=== PATIENT | female | born 1995 | race Caucasian/White ===

== ENCOUNTER 2016-10-28 13:25 | Emergency (ER) | payer MEDICAID ==
[~2016-10-28] VITALS: Wt 79.0 kg
[~2016-10-28 13:25] MED LIST: PREN1TAB62 PO
--- NOTE | 2016-10-28 13:50 | ERD ---
ER Documentation Chief Complaint Date/Time DATE: 10/28/16 TIME: 13:46 Chief Complaint VAG BLEED 5 WEEKS PREG HPI This is a 21-year-old female presents the emergency department today complaining of frequent urination and vaginal bleeding that started this morning. States she is approximate 5 weeks . States she has some crampy lower abdominal pain. States she has not taken any Tylenol but took her vitamins. [facility] has an appointment with [facility] on November 22. States she went there previously and had an ultrasound but they were not able to visualize the fetus. Denies any fevers or chills, nausea vomiting diarrhea. ROS All systems reviewed and are negative except as per history of present illness. Medications Home Meds Active Scripts Cephalexin* (Keflex*) 500 Mg Capsule, 500 MG PO QID for 7 Days, CAP Prov:SUZY MENESES PA-C 10/28/16 Acetaminophen* (Tylophen*) 500 Mg Capsule, 1 CAP PO Q6H Y for PAIN AND OR ELEVATED TEMP, #30 CAP Prov:SUZY MENESES PA-C 10/28/16 Reported Medications Vit-Iron Fumarate-FA ( Vitamin Tablet) 1 Each Tablet, 1 TAB PO DAILY, TAB 02/02/14 Allergies Allergies: Coded Allergies: No Known Allergy (Unverified , 10/28/16) PMhx/Soc Medical and Surgical Hx: pt denies Medical Hx, pt denies Surgical Hx Hx Alcohol Use: No Hx Substance Use: No Hx Tobacco Use: No Smoking Status: Never smoker Physical Exam Vitals Vital Signs Date Time Temp Pulse Resp B/P Pulse Ox O2 Delivery O2 Flow Rate FiO2 10/28/16 13:32 98.1 85 18 126/73 99 Physical Exam Const: pleasant, NAD Head: Atraumatic Eyes: Normal Conjunctiva ENT: Normal External Ears, Nose and Mouth. Neck: Full range of motion..~ No meningismus. Resp: Clear to auscultation bilaterally Cardio: Regular rate and rhythm, no murmurs Abd: Soft, Mild diffuse lower abdominal pain. non distended. Normal bowel sounds. No tenderness McBurney's. Skin: No petechiae or rashes Back: No midline or flank tenderness Ext: No cyanosis, or edema Neur: Awake and alert Psych: Normal Mood and Affect Result Diagram: 10/28/16 1420 Results 24 hrs Laboratory Tests Test 10/28/16 13:49 10/28/16 14:20 Urine Color STRAW Urine Clarity CLEAR Urine pH 5.0 Urine Specific [place] 1.008 Urine Ketones NEGATIVEmg/dL Urine Nitrite NEGATIVEmg/dL Urine Bilirubin NEGATIVEmg/dL Urine Urobilinogen NEGATIVEmg/dL Urine Leukocyte Esterase 2+Madelyn/ul Urine Microscopic RBC 3/HPF Urine Microscopic WBC 7/HPF Urine Squamous Epithelial Cells FEW/HPF Urine Bacteria FEW/HPF Urine Hemoglobin 3+mg/dL Urine Glucose NEGATIVEmg/dL Urine Total Protein NEGATIVEmg/dl White Blood Count 10.810^3/ul Red Blood Count 4.7910^6/ul Hemoglobin 14.1g/dl Hematocrit 41.3% Mean Corpuscular Volume 86.2fl Mean Corpuscular Hemoglobin 29.4pg Mean Corpuscular Hemoglobin Concent 34.1g/dl Red Cell Distribution Width 13.0% Platelet Count 81039^3/UL Mean Platelet Volume 10.8fl Neutrophils % 63.5% Lymphocytes % 25.5% Monocytes % 7.6% Eosinophils % 2.3% Basophils % 0.5% Nucleated Red Blood Cells % 0.0/100WBC Neutrophils # 6.910^3/ul Lymphocytes # 2.810^3/ul Monocytes # 0.810^3/ul Eosinophils # 0.310^3/ul Basophils # 0.110^3/ul Nucleated Red Blood Cells # 0.010^3/ul Beta HCG, Quantitative 1557.6mIU/ml DIAGNOSTIC IMAGING REPORT Patient: LUPE ARREDONDO : 1995 Age: 21 Sex: F MR #: [id number] DOS: 10/28/16 1342 Ordering MD: SUZY MENESES PA-C Location: [facility] Room/Bed: PROCEDURE: US OB. CLINICAL INDICATION: Vaginal bleeding. TECHNIQUE: Transabdominal and transvaginal views of the pelvis are available for review. COMPARISON: No prior studies are available for comparison. FINDINGS: Uterus is identified in is anteflexed. The uterus measures 8.4 cm sagittal by 4.6 cm AP by 5.5 cm transverse on endovaginal imaging. A gestational sac measuring 0.7 x 0.4 x 0.6 cm in size is identified containing a yolk sac. Mean sac diameter: 0.58 cm equals 5 weeks 1 day. Presentation: Mobile. [place]-rump length: Not visible. heart rate: Not detected. Amniotic fluid volume: Normal. Ultrasound estimated gestational age: Out of range. A 1.1 cm corpus luteal cyst of is identified in the right ovary. The right ovary measures 2.7 x 1.7 x 2.3 cm. The left ovary measures 2.7 x 2.2 x 1.9 cm. There is normal blood flow and Doppler imaging to both ovaries. No pathologic ovarian or adnexal mass lesion is seen. There is no free fluid. IMPRESSION: 1. A gestational sac is identified. Mean sac diameter calculates out to 5 weeks 1 day. Recommend follow-up ultrasound imaging to confirm viability in 1-2 weeks. 2. No free fluid or abnormal adnexal mass is identified. 3. 1.1 cm corpus luteal cyst in the right ovary. RPTAT:AAJJ Physician Shira Date Time Electronically viewed and signed by Chilango Posadas Physician on 10/28/2016 14:28 JM/ CC: SUZY MENESES PA-C Procedures/MDM This is a A1 21-year-old female who presents to the emergency department today complaining of vaginal bleeding. Patient states she is approximately 5 weeks. Given this I did obtain a complete OB workup. Laboratory work shows no elevated white blood cell count. She is not anemic. Platelets are within normal limits. UA Shows 2+ leukocyte esterase. Beta quant hCG 1557.6 Rh status O+ Ultrasound shows a gestational sac identified containing a yolk sac. Sac diameter calculus up to 5 weeks and 1 day. Recommend follow-up ultrasound imaging can to confirm viability in 1-2 weeks. There is no free fluid or abnormal adnexal mass identified. There is a 1.1 cm corpus luteal cyst in the right ovary. Patient declined Tylenol here in the emergency department. She will be given a prescription for home. Patient symptoms at this time is consistent with vaginal bleeding in early and urinary tract infection. Other differentials to consider early normal versus early failed . I did explain to the patient that she may continue to have some vaginal bleeding. She did report that she does went to the bathroom and did not have any bleeding at that time. Patient is afebrile and otherwise well-appearing. I have low suspicion for ectopic , tubo ovarian abscess, ovarian torsion. Low suspicion for acute surgical abdomen. I have explained the results to the patient. I have explained to the patient that they need to follow-up in 48 hours for a repeat beta quant and repeat ultrasound. At this time the patient is stable for discharge and outpatient management. Patient should follow up with their PCP in the next 1-2 days. They may return to the emergency department sooner for any persistent or worsening of symptoms. Patient understood and agreed with the plan. Discussed the patient with Dr. Willoughby and he is in agreement with the plan. Departure Diagnosis: Primary Impression: Vaginal bleeding in patient at less than 20 weeks gestation Additional Impression: UTI in Trimester: first trimester Qualified Code: O23.41 - Urinary tract infection in mother during first trimester of Condition: SUZY Miller PA-C Oct 28, 2016 13:50
[2016-10-28 14:06] LABS: ADD UMIC YES; UR ASCORBIC ACID NEGATIVE (NEGATIVE); UR BACTERIA FEW /HPF (NONE SEEN); UR BILIRUBIN (Dip) NEGATIVE (NEGATIVE); UR BLOOD (Dip) 3+ mg/dL (NEGATIVE); UR CLARITY CLEAR (CLEAR); UR COLOR STRAW (YELLOW); UR GLUCOSE (Dip) NEGATIVE (NEGATIVE); UR KETONES (Dip) NEGATIVE (NEGATIVE); UR LEUKOCYTE ESTERASE (Dip) 2+ Leu/ul (NEGATIVE); UR NITRITE (Dip) NEGATIVE (NEGATIVE); UR RBC 3 /HPF (0-5); UR SPECIFIC GRAVITY (Dip) 1.008 (1.003-1.030); UR SQUAMOUS EPITHELIAL CELL FEW /HPF (FEW); UR TOTAL PROTEIN (Dip) NEGATIVE (NEGATIVE); UR UROBILINOGEN (Dip) NEGATIVE (NEGATIVE)
--- NOTE | 2016-10-28 14:29 | RADRPT ---
PROCEDURE: US OB. CLINICAL INDICATION: Vaginal bleeding. TECHNIQUE: Transabdominal and transvaginal views of the pelvis are available for review. COMPARISON: No prior studies are available for comparison. FINDINGS: Uterus is identified in is anteflexed. The uterus measures 8.4 cm sagittal by 4.6 cm AP by 5.5 cm tr ansverse on endovaginal imaging. A gestational sac measuring 0.7 x 0.4 x 0.6 cm in size is identified containing a yolk sac. Mean sac diameter: 0.58 cm equals 5 weeks 1 day. Presentation:Mobile. [place]-rump length:Not visible. heart rate:Not detected. Amniotic fluid volume: Normal. Ultrasound estimated gestational age:Out of range. A 1.1 cm corpus luteal cyst of is identified in the right ovary. The right ovary measures 2.7 x 1.7 x 2.3 cm. The left ovary measures 2.7 x 2.2 x 1.9 cm. There is normal blood flow and Doppler imaging to both ovaries. No pathologic ovarian or adnexal mass lesion is seen. There is no free fluid. IMPRESSION: 1. A gestational sac is identified. Mean sac diameter calculates out to 5 weeks 1 day. Recommend fo llow-up ultrasound imaging to confirm viability in 1-2 weeks. 2. No free fluid or abnormal adnexal mass is identified. 3. 1.1 cm corpus luteal cyst in the right ovary. RPTAT:AAJJ Physician Shira Date Time Electronically viewed and signed by Physician Shira on 10/28/2016 14:28 /
[2016-10-28 14:35] LABS: BASOPHIL # 0.1 10^3/ul (0.0-0.1); BASOPHILS % 0.5 % (0.0-2.0); EOSINOPHILS # 0.3 10^3/ul (0.0-0.5); EOSINOPHILS % 2.3 % (0.0-7.0); HEMATOCRIT 41.3 % (37.0-47.0); HEMOGLOBIN 14.1 g/dl (12.0-16.0); LYMPHOCYTES # 2.8 10^3/ul (0.8-2.9); LYMPHOCYTES % 25.5 % (15.0-51.0); MEAN CORPUSCULAR HEMOGLOBIN 29.4 pg (29.0-33.0); MEAN CORPUSCULAR HGB CONC 34.1 g/dl (32.0-37.0); MEAN CORPUSCULAR VOLUME 86.2 fl (82.0-101.0); MEAN PLATELET VOLUME 10.8 fl (7.4-10.4); MONOCYTE # 0.8 10^3/ul (0.3-0.9); MONOCYTES % 7.6 % (0.0-11.0); NEUTROPHIL # 6.9 10^3/ul (1.6-7.5); NEUTROPHILS % 63.5 % (39.0-77.0); PLATELET COUNT 336 10^3/UL (140-415); RED BLOOD COUNT 4.79 10^6/ul (4.20-5.40); WHITE BLOOD COUNT 10.8 10^3/ul (4.8-10.8)
[2016-10-28] MEDS ORDERED: ACET500C5 PO (15:28)
[2016-10-28] MEDS ORDERED: CEPH-443 PO (15:29)
== END 2016-10-28 15:43 | disposition home or self-care (01) ==
LOC: FTE 13:25
DX: O20.9 Hemorrhage in early pregnancy, unspecified (principal); O23.41 Unspecified infection of urinary tract in pregnancy, first trimester; Z3A.01 Less than 8 weeks gestation of pregnancy
CPT/HCPCS: 76801; 76817; 81001; 84702; 85025; 86900; 86901; Z7502

== ENCOUNTER 2017-05-23 16:02 | Outpatient (CLI) | END 2017-05-23 18:35 | disposition home or self-care (01) ==

== ENCOUNTER 2017-05-25 17:18 | Outpatient (CLI) | END 2017-05-25 19:24 | disposition home or self-care (01) ==

== ENCOUNTER 2017-06-05 12:26 | Outpatient (CLI) | END 2017-06-05 15:30 | disposition home or self-care (01) ==

== ENCOUNTER 2017-06-13 06:20 | Inpatient (IN) | END 2017-06-15 14:20 | disposition home or self-care (01) | DRG 775 ==